=== PATIENT | male | born 1985 | race Hispanic/Latino ===

== ENCOUNTER 2019-02-18 10:09 | Emergency (ER) | payer OTHER ==
[2019-02-18] MEDS ORDERED: ACETAMINOPHEN 325 MG TAB ONE (10:54)
== END 2019-02-18 11:08 | disposition home or self-care (01) ==
LOC: EDH 10:09
DX: S93.401A Sprain of unspecified ligament of right ankle, initial encounter (principal); Z88.6 Allergy status to analgesic agent; X58.XXXA Exposure to other specified factors, initial encounter; Y93.89 Activity, other specified; Y92.89 Other specified places as the place of occurrence of the external cause; Y99.8 Other external cause status
CPT/HCPCS: 73610